=== PATIENT | male | born 1965 | race African-American/Black ===

== ENCOUNTER → 2023-05-29 | Day surgery (SDC) | payer OTHER ==
[2023-05-24 12:36] LABS: CALCIUM 9.5 mg/dL (8.4-10.2); CREATININE, SERUM 1.13 mg/dL (0.72-1.25)
[~2023-05-29] MED LIST: ACETAMINOPHEN 1000 MG/100 ML 100 ML IV ONE; AMLODIPINE BESYL5 MG PO; CEFAZOLIN SODIUM 0 GM ONE; CELECOXIB 200 MG CAP ONE; CRESTOR10 MG PO; DEXAMETHASONE SOD PHOS 10 MG/1 ML VIAL ONE; DEXAMETHASONE SOD PHOS INJ 4 MG/ML SDV ONE; GABAPENTIN 300 MG CAP ONE; HUMALOG MI100 UNIT/2 SQ; INSULIN LI100 UNIT/1 SQ; LACTATED RINGER'S 1,000 ML ONE; LANTUS 3ML100 UNITS/ SQ; METFORMIN HCL500 MG PO; PROTONIX20 MG PO; lispro PO
== END | disposition home or self-care (01) ==
LOC: OR 06:35
PROVIDERS: ATTEND Specialist
DX: M75.101 Unspecified rotator cuff tear or rupture of right shoulder, not specified as traumatic (principal); R07.9 Chest pain, unspecified; I10 Essential (primary) hypertension; E78.5 Hyperlipidemia, unspecified; E11.9 Type 2 diabetes mellitus without complications; M54.9 Dorsalgia, unspecified; Z01.812 Encounter for preprocedural laboratory examination; Z53.8 Procedure and treatment not carried out for other reasons
CPT/HCPCS: 36415 ×2; 80048; 82948; 93005; J0131; J1100; J7121; J0690

== ENCOUNTER → 2024-08-26 | Day surgery (SDC) | payer OTHER ==
[2024-08-20 12:23] LABS: ANION GAP 15.8 mmol/L (8-16); CALCIUM 9.2 mg/dL (8.4-10.2); CREATININE, SERUM 1.01 mg/dL (0.72-1.25); POTASSIUM 3.8 mmol/L (3.5-5.1)
[~2024-08-26] MED LIST changes: +BUPIVACAINE LIPOSOME/PF 266 MG/20 ML IJ ONE; +BUPIVACAINE/EPI 0.5% 30ML SDV-MPF INJ ONE; -CEFAZOLIN SODIUM 0 GM ONE; -CELECOXIB 200 MG CAP ONE; -DEXAMETHASONE SOD PHOS 10 MG/1 ML VIAL ONE; +FENTANYL CITRATE/PF 100MCG/2 ML INJ ONE; -GABAPENTIN 300 MG CAP ONE; +GLYCOPYRROLATE INJ 0.2 MG/ML VIAL ONE; +HYDROCHLOROTHIA25 MG; +JARDIANCE25 MG PO; -LACTATED RINGER'S 1,000 ML ONE; +LIDOCAINE HCL 2% LOCAL INJ 5 ML SDV VIAL INJ ONE; +MIDAZOLAM HCL 2 MG/2 ML VIAL ONE; +ONDANSETRON HCL INJ 2MG/ML 2ML 2 MG/ML VIAL ONE; +PHENYLEPHRINE HCL 1% 10 MG/ML VIAL ONE; +PROPOFOL IV EMULSION 10 MG/ML 20 ML VIAL ONE; +ROCURONIUM BROMIDE 1 ML IV ONE; +RYBELSUS3 MG PO; +SEVOFLURANE INHAL SOLN 250 ML PEN BTL ONE; +SODIUM CHLORIDE 0.9% 100 ML ONE; +SUGAMMADEX SODIUM 200 MG/2 ML VIAL IV ONE
[2024-08-26] MEDS: LACTATED RINGER'S 1,000 ML ONE (08:12)
[2024-08-26 11:34] VITALS: TEMP 97
[2024-08-26] MEDS: HYDROCODONE/APAP 7.5MG-325MG 1 EA TAB ONE (12:35)
[2024-08-26 13:30] VITALS: BP 145/89; PULSE 89; RESP 16; O2SAT 99
== END | disposition home or self-care (01) ==
LOC: OR 07:02
PROVIDERS: ATTEND Specialist
DX: S46.811A Strain of other muscles, fascia and tendons at shoulder and upper arm level, right arm, initial encounter (principal); S46.211A Strain of muscle, fascia and tendon of other parts of biceps, right arm, initial encounter; M67.813 Other specified disorders of tendon, right shoulder; M19.011 Primary osteoarthritis, right shoulder; M75.51 Bursitis of right shoulder; M75.01 Adhesive capsulitis of right shoulder; M65.911 Unspecified synovitis and tenosynovitis, right shoulder; E11.9 Type 2 diabetes mellitus without complications; I10 Essential (primary) hypertension; E78.5 Hyperlipidemia, unspecified; K21.9 Gastro-esophageal reflux disease without esophagitis; X58.XXXA Exposure to other specified factors, initial encounter; Z01.810 Encounter for preprocedural cardiovascular examination; Z01.812 Encounter for preprocedural laboratory examination; Z79.84 Long term (current) use of oral hypoglycemic drugs; Z79.4 Long term (current) use of insulin; Z79.899 Other long term (current) drug therapy; Z68.33 Body mass index [BMI] 33.0-33.9, adult; Z86.16 Personal history of COVID-19
CPT/HCPCS: 29827; 36415 ×2; 80048; 82948; 93005; C1713; J0131; J0666; J0690; J1100; J2003; J2250; J2371; J2405; J2704; J3010; J7050; J7121